=== PATIENT | female | born 1960 | race Two or more races ===

== ENCOUNTER 2019-04-06 08:27 | Emergency (ER) | payer SELFPAY ==
[2019-04-06] MEDS ORDERED: MECLIZINE HCL 25 MG TABLET PO ONE (09:58)
--- NOTE | 2019-04-06 10:00 | ER Document Report ---
ED Dizziness/Weakness - General Chief Complaint: Dizziness Stated Complaint: DIZZINESS Time Seen by Provider: 04/06/19 09:21 Primary Care Provider: PETE PUGH MD [Primary Care Provider] - Follow up as needed Information source: Patient Notes: 58-year-old female who presents today with the onset around 5 days ago of some "room spinning feeling" with some gait disturbance and feeling off balance. She denies any blurry vision, double vision, neck pain, head trauma, chest pain, palpitations, abdominal pain, weakness or numbness. No previous history of similar pathology. No recent upper respiratory tract infection signs. No tinnitus. When questioned on review of systems she states some mild posterior head pain that started around 3 days ago. It did not come on acutely. It is been intermittent. TRAVEL OUTSIDE OF THE [place] IN LAST 30 DAYS: No - Related Data Allergies/Adverse Reactions: Penicillins Allergy (Verified 04/06/19 08:30) Past Medical History - Social History Smoking Status: Never Smoker Chew tobacco use (# tins/day): No Frequency of alcohol use: None Drug Abuse: None Family History: None Patient has suicidal ideation: No Patient has homicidal ideation: No Renal/ Medical History: Denies: Hx Peritoneal Dialysis Review of Systems - Review of Systems Constitutional: denies: Fever EENT: denies: Eye discharge, Nose discharge Cardiovascular: denies: Chest pain, Palpitations Respiratory: denies: Short of breath Gastrointestinal: denies: Vomiting Genitourinary: denies: Dysuria Musculoskeletal: denies: Leg swelling Skin: Other - no hives. denies: Rash Neurological/Psychological: Other - no slurred speech -: Yes All other systems reviewed and negative Physical Exam - Vital signs Vitals: Temp Pulse Resp BP Pulse Ox 98.2 F 80 18 154/110 H 96 04/06/19 08:29 04/06/19 08:29 04/06/19 08:29 04/06/19 08:29 04/06/19 08:29 Notes: Reviewed vital signs and nursing note as charted by RN. CONSTITUTIONAL: Alert and oriented and responds appropriately to questions. Well-appearing; well-nourished HEAD: Normocephalic; atraumatic EYES: PERRL; no nystagmus; conjunctivae clear, sclerae non-icteric ENT: Normal nose; no rhinorrhea; moist mucous membranes; TMs clear bilaterally; pharynx without lesions noted NECK: Supple without meningismus; non-tender; no carotid bruit; no cervical lymphadenopathy, no masses CARD: Regular rate and rhythm; no murmurs; symmetric distal pulses RESP: Normal chest excursion without splinting or tachypnea; breath sounds clear and equal bilaterally; no wheezes, no rhonchi, no rales ABD/GI: Normal bowel sounds; non-distended; soft, non-tender; no palpable organomegaly or masses BACK: The back appears normal and is non-tender to palpation EXT: Normal ROM in all joints; non-tender to palpation; no edema SKIN: No acute lesions noted NEURO: CN 2-12 intact; 5/5 bilateral upper and lower extremity strength with sensation intact to light touch; normal cerebellar examination with no nystagmus noted PSYCH: The patient's mood and manner are appropriate. Grooming and personal hygiene are appropriate. Course - Re-evaluation Re-evalutation: 04/06/19 10:00 Given the history and physical examination, persistent symptoms, exam as above, I will obtain an MRI of the brain, basic labs, cardiac labs, EKG, and reassess. If the patient's work-up is unremarkable and the patient continues to look excellent, patient will be discharged home with strict return precautions, meclizine prescriptions, and follow-up with the primary care physician. Patient denies any new weakness or numbness. She states she has some intermittent right lower extremity that is been intermittent for 1 year. She denies any weakness. Patient is not a TPA candidate. EKG shows a heart rate of 75, normal sinus rhythm, normal axis, no ST elevation or depression 04/06/19 12:19 MRI as recorded. No change in exam. Still no focal neurological deficits. No chest pain. Electrolytes unremarkable. Normal troponin. Patient has a primary care physician she is able to follow-up with. Given the above history and physical examination, patient will be discharged home with strict return precautions and follow-up with her primary care physician with a short course of Antivert as needed. - Vital Signs Vital signs: Temp Pulse Resp BP Pulse Ox 98.2 F 76 19 124/82 97 04/06/19 08:29 04/06/19 08:35 04/06/19 09:01 04/06/19 09:01 04/06/19 09:01 - Laboratory Result Diagrams: 04/06/19 10:56 04/06/19 09:45 Laboratory results interpreted by me: 04/06/19 09:45 Chloride 108 H Total Protein 8.5 H Discharge - Discharge Clinical Impression: Vertigo Condition: Good Disposition: HOME, SELF-CARE Instructions: Meclizine (OM) Additional Instructions: Come back immediately for any worsening dizziness, any chest pain, any weakness or numbness, return or worsening of headache, blurry vision, vomiting, or any other acute problems. Please take the meclizine medication every 8 hours as needed and please follow-up with your primary doctor. Prescriptions: Meclizine HCl [Antivert 25 mg Tablet] 25 mg PO TID PRN #15 tablet PRN Reason: Referrals: PETE PUGH MD [Primary Care Provider] - Follow up as needed
[2019-04-06 10:37] LABS: APPEARANCE,URINE CLEAR; BILIRUBIN,URINE NEGATIVE (NEGATIVE); COLOR,URINE STRAW; GLUCOSE, URINE NEGATIVE (NEGATIVE); KETONES,URINE NEGATIVE (NEGATIVE); LEUKOCYTE ESTERASE,URINE NEGATIVE (NEGATIVE); NITRITE,URINE NEGATIVE (NEGATIVE); PROTEIN,URINE NEGATIVE (NEGATIVE); URINE SPECIFIC GRAVITY 1.005; UROBILINOGEN,URINE NEGATIVE mg/dL (<2.0)
[2019-04-06 10:53] LABS: CREATINE KINASE MB 0.75 ng/mL (<4.55); TROPONIN I < 0.012 ng/mL
[2019-04-06 10:55] LABS: ALANINE AMINOTRANSFERASE 42 U/L (9-52); ALBUMIN 4.7 g/dL (3.5-5.0); ALKALINE PHOSPHATASE 118 U/L (38-126); ANION GAP 11 (5-19); ASPARTATE AMINO TRANSFERASE 34 U/L (14-36); BILIRUBIN,DIRECT 0.3 mg/dL (0.0-0.4); BILIRUBIN,TOTAL 0.7 mg/dL (0.2-1.3); BLOOD UREA NITROGEN 13 mg/dL (7-20); CALCIUM 9.7 mg/dL (8.4-10.2); CARBON DIOXIDE 26 mmol/L (22-30); CHLORIDE 108 mmol/L (98-107); CREATINE KINASE 85 U/L (30-135); GLUCOSE 97 mg/dL (75-110); POTASSIUM 4.3 mmol/L (3.6-5.0); SODIUM 144.5 mmol/L (137-145); TOTAL PROTEIN 8.5 g/dL (6.3-8.2)
[2019-04-06 11:04] LABS: ABSOLUTE LYMPHOCYTES (AUTO) 2.1 10^3/uL (0.5-4.7); ABSOLUTE MONOCYTES (AUTO) 0.4 10^3/uL (0.1-1.4); BASOPHILS % (AUTO) 0.4 % (0-2); EOSINOPHILS % (AUTO) 0.8 % (0-6); HEMATOCRIT 41.2 % (36.0-47.0); HEMOGLOBIN 14.1 g/dL (12.0-15.5); LYMPHOCYTES % (AUTO) 37.9 % (13-45); MEAN CORPUSCULAR HEMOGLOBIN 31.1 pg (27.0-33.4); MEAN CORPUSCULAR HGB CONC 34.3 g/dL (32.0-36.0); MEAN CORPUSCULAR VOLUME 91 fl (80-97); MONOCYTES % (AUTO) 6.4 % (3-13); PLATELET COUNT 248 10^3/uL (150-450); RED BLOOD COUNT 4.53 10^6/uL (3.72-5.28); RED CELL DISTRIBUTION WIDTH 13.1 % (11.5-14.0); SEGMENTED NEUTROPHILS % (AUTO) 54.5 % (42-78); TOTAL CELLS COUNTED % (AUTO) 100 %; WHITE BLOOD COUNT 5.5 10^3/uL (4.0-10.5)
--- NOTE | 2019-04-06 12:15 | RADIOLOGY REPORT (SQ) ---
EXAM DESCRIPTION: MRI HEAD WITHOUT COMPLETED DATE/TIME: 04/06/2019 11:54 am REASON FOR STUDY: 5; vertigo COMPARISON: None. TECHNIQUE: Multiplanar imaging includes non-contrasted T1, T2, FLAIR, and diffusion with ADC map seq uences. Images stored on PACS. LIMITATIONS: None. FINDINGS: ANATOMY: No anomalies. Normal vascular flow voids. Pituitary fossa normal. CSF SPACES: Normal in size and contour. No hemorrhage. CEREBRUM: Sulci and gyri normal in size and contour. Normal white matter signal on FLAIR imaging. No evidence of hemorrhage, mass, or extraaxial fluid collection. POSTERIOR FOSSA: No signal alteration. No hemorrhage. No edema, masses or mass effect. Internal ruben tory canals, cerebello-pontine angles, mastoids normal. DIFFUSION IMAGING: Negative for acute or sub-acute infarction. ORBITS: No masses. Globes normal. PARANASAL SINUSES: No fluid levels. Mucosa normal. OTHER: No other significant finding. IMPRESSION: NORMAL MRI OF THE BRAIN WITHOUT INTRAVENOUS GADOLINIUM CONTRAST. EVIDENCE OF ACUTE STROKE: NO. TECHNICAL DOCUMENTATION: JOB ID: [id number] [employer]- All Rights Reserved Reading location - IP/workstation name: [email or web address]
[2019-04-06 13:00] VITALS: BP 146/79
--- NOTE | 2019-04-06 18:38 | EKG REPORT ---
SEVERITY:- NORMAL ECG - SINUS RHYTHM : Confirmed by: Amisha Ferrer MD 06-Apr-2019 18:37:11
== END 2019-04-06 14:29 | disposition home or self-care (01) ==
LOC: ER 08:27
DX: R42 Dizziness and giddiness (principal); Z88.0 Allergy status to penicillin
CPT/HCPCS: 36415; 70551; 80053; 81001; 82550; 82553; 84484; 85025; 93005; 93010; 99284

== ENCOUNTER → 2019-04-28 | Outpatient (CLI) | payer OTHER ==
[2019-04-28 10:10] LABS: ALANINE AMINOTRANSFERASE 43 U/L (9-52); ALBUMIN 4.5 g/dL (3.5-5.0); ALKALINE PHOSPHATASE 91 U/L (38-126); ANION GAP 8 (5-19); ASPARTATE AMINO TRANSFERASE 30 U/L (14-36); BILIRUBIN,DIRECT 0.3 mg/dL (0.0-0.4); BILIRUBIN,TOTAL 0.8 mg/dL (0.2-1.3); BLOOD UREA NITROGEN 14 mg/dL (7-20); CALCIUM 9.6 mg/dL (8.4-10.2); CARBON DIOXIDE 27 mmol/L (22-30); CHLORIDE 108 mmol/L (98-107); CHOLESTEROL 262.75 mg/dL (0-200); GLUCOSE 109 mg/dL (75-110); POTASSIUM 4.5 mmol/L (3.6-5.0); SODIUM 142.8 mmol/L (137-145); TOTAL PROTEIN 7.8 g/dL (6.3-8.2); TRIGLYCERIDES 168 mg/dL (<150)
[2019-04-28 10:21] LABS: DIRECT LDL 176 mg/dL (<100)
[2019-04-28 10:26] LABS: VLDL CHOLESTEROL 33.6 mg/dL (10-31)
== END ==
LOC: CCC 09:03
DX: Z00.00 Encounter for general adult medical examination without abnormal findings (principal)
CPT/HCPCS: 36415; 80053; 80061; 83036; 84436; 84443